=== PATIENT | female | born 1980 | race African-American/Black ===

== ENCOUNTER 2022-12-28 16:19 | Inpatient (IN) | payer OTHER ==
[2022-12-28 17:20] VITALS: BMI 17.7
[2022-12-28] MEDS ORDERED: LOPERAMIDE HCL 2 MG CAPSULE PO PRN (18:10)
[2022-12-28] MEDS ORDERED: ONDANSETRON *ODT* 4 MG TABLET SL PRN (18:10)
[2022-12-28] MEDS ORDERED: POLYETHYLENE GLYCOL (HEALTHYLAX) 3350 17 GM PACKET PO PRN (18:10)
[2022-12-28] MEDS ORDERED: P-EPHED 60MG/TRIPROLIDI 2.5MG TABLET PO PRN (18:10)
[2022-12-28] MEDS ORDERED: MAGNESIUM HYDROX 2400MG/30ML ORAL SUSPENSION 30 ML CUP PO PRN (18:10)
[2022-12-28] MEDS ORDERED: guaiFENesin 600 MG TABLET.ER (FP) PO PRN (18:10)
[2022-12-28] MEDS ORDERED: BENZOCAINE/MENTHOL (CHLORASEPTIC ) LOZENGE MM PRN (18:10)
[2022-12-28] MEDS ORDERED: BISMUTH SUBSALICYLATE 524 MG/30 ML PO PRN (18:10)
[2022-12-28] MEDS ORDERED: DICYCLOMINE HCL 10 MG CAPSULE PO PRN (18:10)
[2022-12-28] MEDS ORDERED: MAG HYDROX/AL HYDROX/SIMETH 30 ML UNIT-DOSE CUP PO PRN (18:10)
[2022-12-28] MEDS ORDERED: BENZONATATE 200 MG CAPSULE PO PRN (18:10)
[2022-12-28] MEDS ORDERED: chlordiazePOXIDE HCL 25 MG CAPSULE PO PRN (18:13)
[2022-12-28] MEDS: chlordiazePOXIDE HCL 25 MG CAPSULE PO SCH (22:07)
[2022-12-28] MEDS: MELATONIN 5 MG TABLETS PO PRN (22:07)
[2022-12-28] MEDS: THIAMINE HCL 100 MG TABLET (FP) PO SCH (22:08)
[2022-12-29] MEDS: chlordiazePOXIDE HCL 25 MG CAPSULE PO SCH ×4 (05:42→22:01)
[2022-12-29] MEDS: PRENATAL VITAMINS W/ FOLIC ACID TABLET (FP) PO SCH (10:18)
[2022-12-29] MEDS: METHOCARBAMOL 500 MG TABLET PO PRN (10:20)
[2022-12-29 10:48] LABS: CALCIUM 7.9 mg/dL (8.5-10.1)
[2022-12-29 10:51] LABS: ALBUMIN 3.4 g/dl (3.4-5.0); BLOOD UREA NITROGEN 8.2 mg/dL (7-18)
[2022-12-29 10:52] LABS: CREATININE 0.6 mg/dL (0.55-1.3)
[2022-12-29 10:53] LABS: BILIRUBIN,TOTAL 0.5 mg/dL (0.2-1)
[2022-12-29 10:54] LABS: TOT PROT 7.4 g/dl (6.4-8.2)
[2022-12-29 10:57] LABS: HEMATOCRIT 27.6 % (32.4-45.2); HEMOGLOBIN 9.3 GM/dL (10.7-15.3); MCHC 33.7 g/dl (32.0-36.0); MEAN CELL VOLUME 88.9 fl (80-96); MEAN PLT VOLUME 9.2 fl (7.5-11.1); PLATELET COUNT 123 10^3/uL (134-434); RBC 3.11 M/mm3 (3.60-5.2); RDW 18.4 % (11.6-15.6); WHITE BLOOD COUNT 2.8 K/mm3 (4.0-10.0)
[2022-12-29] MEDS ORDERED: POTASSIUM CHLORIDE ORAL LIQUID 20 MEQ/15 ML PO ONE ×2 (12:25→18:00)
[2022-12-29] MEDS: QUEtiapine FUMARATE 100 MG TABLET (FP) PO SCH (22:01)
[2022-12-29] MEDS: THIAMINE HCL 100 MG TABLET (FP) PO SCH (22:01)
[2022-12-29] MEDS: MELATONIN 5 MG TABLETS PO PRN (22:02)
[2022-12-30] MEDS: chlordiazePOXIDE HCL 10 MG CAPSULE PO SCH ×4 (05:21→22:10)
[2022-12-30] MEDS: METHOCARBAMOL 500 MG TABLET PO PRN ×3 (05:25→23:34)
[2022-12-30] MEDS: PRENATAL VITAMINS W/ FOLIC ACID TABLET (FP) PO SCH (10:50)
[2022-12-30] MEDS: MELATONIN 5 MG TABLETS PO PRN (22:10)
[2022-12-30] MEDS: QUEtiapine FUMARATE 100 MG TABLET (FP) PO SCH (22:10)
[2022-12-30] MEDS: THIAMINE HCL 100 MG TABLET (FP) PO SCH (22:10)
[2022-12-30] MEDS: ACETAMINOPHEN 325 MG TABLET (FP) PO PRN (22:21)
[2022-12-31] MEDS ORDERED: chlordiazePOXIDE HCL 10 MG CAPSULE PO PRN
[2022-12-31] MEDS: chlordiazePOXIDE HCL 10 MG CAPSULE PO SCH ×2 (05:22→17:37)
[2022-12-31] MEDS: ACETAMINOPHEN 325 MG TABLET (FP) PO PRN ×2 (05:25→17:38)
[2022-12-31] MEDS: METHOCARBAMOL 500 MG TABLET PO PRN ×2 (05:26→22:03)
[2022-12-31] MEDS: PRENATAL VITAMINS W/ FOLIC ACID TABLET (FP) PO SCH (10:18)
[2022-12-31] MEDS: THIAMINE HCL 100 MG TABLET (FP) PO SCH (22:03)
[2022-12-31] MEDS: QUEtiapine FUMARATE 100 MG TABLET (FP) PO SCH (22:03)
[2022-12-31] MEDS: MELATONIN 5 MG TABLETS PO PRN (22:03)
[2023-01-01] MEDS ORDERED: chlordiazePOXIDE HCL 10 MG CAPSULE PO ONE (05:00)
[2023-01-01] MEDS: METHOCARBAMOL 500 MG TABLET PO PRN (05:41)
[2023-01-01 06:30] VITALS: RESP 16
[2023-01-01 08:49] VITALS: BP 111/79; PULSE 82; TEMP 97.9
== END 2023-01-01 09:31 | disposition home or self-care (01) | DRG 775 ==
LOC: YASAS 16:19 → Y3N 18:37
PROVIDERS: ADMIT Allergy & Immunology; ATTEND Surgery
PROC: HZ2ZZZZ Detoxification Services for Substance Abuse Treatment (ICD-10-PCS; principal; 2022-12-28)
DX: F10.230 Alcohol dependence with withdrawal, uncomplicated (principal); F31.9 Bipolar disorder, unspecified; F41.0 Panic disorder [episodic paroxysmal anxiety]; G40.909 Epilepsy, unspecified, not intractable, without status epilepticus; E87.6 Hypokalemia; Z86.59 Personal history of other mental and behavioral disorders
CPT/HCPCS: 36415; 80053; 81025; 84132; 85027; 86780; 87811; C9803-CS; U0003; U0005